=== PATIENT | male | born 1995 | race Caucasian/White ===

== ENCOUNTER 2023-07-28 15:19 | Emergency (ER) | payer BC, SELFPAY ==
[2023-07-28] VITALS (16 sets, daily range): BP systolic 83–140; BP diastolic 45–112; PULSE 61–113; RESP 13–20; TEMP 37.1; O2SAT 96–100
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
--- NOTE | 2023-07-28 15:30 | DI.CT_ITS ---
Exam(s) CT HEAD CERVICAL SPINE WO EXAM: CT HEAD CERVICAL SPINE WO CLINICAL HISTORY: trauma. TECHNIQUE: Imaging Protocol: Axial computed tomography images with coronal and sagittal reformatted images were created and reviewed COMPARISON: No exams were available for comparison FINDINGS: CT Head: Ventricles and Extra axial spaces: Normal in size and morphology for the patient's age. Hemorrhage: None. Cerebral parenchyma: Normal. Midline shift: None. Brainstem/Cerebellum: Normal. Calvarium: Normal. Visualized Paranasal sinuses/Mastoids: Clear. Soft Tissues: Unremarkable. CT Cervical Spine: Bones: No acute fracture or subluxation. There is an acute nondisplaced fracture of the posterior asp ect of the right 3rd rib. Soft Tissues: Unremarkable. Lung Apices: There does appear to be a tiny right apical pneumothorax. IMPRESSION: 1. No acute intracranial process. 2. No acute fracture or subluxation in the cervical spine. 3. There is an acute nondisplaced fracture involving the posterior aspect of the right 3rd rib. Ther e may be a tiny right apical pneumothorax. 4. Findings were discussed with Dr. Rincon at 5:12 a.m. on 07/29/2023. RADIATION DOSE DELIVERED: 1,380.73mGy.cm Total DLP DATA REPOSITORY: All CT scans at this facility are submitted to the National Radiology Data Registry (NRDR) Dose Index Registry (DIR) with the [employer] ([employer]). RADIATION OPTIMIZATION: All CT scans at this facility use at least one of these dose optimization te chniques: automated exposure control; mA and/or kV adjustment per patient size (includes targeted exa ms where dose is matched to clinical indication); or iterative reconstruction.
--- NOTE | 2023-07-28 15:30 | DI.RAD_ITS ---
Exam(s) XR CLAVICLE RT EXAM: XR CLAVICLE RT CLINICAL HISTORY: trauma TECHNIQUE: 2D digital imaging was performed of the right clavicle. Two images were obtained. AP and axial views were obtained. COMPARISON: No exams were available for comparison FINDINGS: BONES: There is an acute comminuted fracture of the midshaft of the right clavicle. There is displac ement and overriding of the fracture fragments. No bony destructive lesion is seen. JOINTS: No dislocation present. SOFT TISSUE: Normal IMPRESSION: Comminuted mid right clavicular fracture. DATA REPOSITORY: RADIATION DOSE DELIVERED:
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
[2023-07-28 15:56] LABS: HCT 43.3 % (40.0-50.0); HGB 15.8 g/dL (13.5-17.5); MCH 30.7 pg (27.0-33.0); MCHC 36.5 % (32.0-36.0); MCV 84 fL (80-95); Platelet Count 204 10^3/uL (130-400); RBC 5.14 10^6/uL (4.36-5.78); RDW 11.5 % (11.8-14.1); RDW-SD 35.2 fL; WBC 7.92 10^3/uL (4.4-10.8)
[2023-07-28] MEDS: Normal Saline 1,000 ML 1000 ML IV ×2 (16:01→17:49)
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
[2023-07-28 16:08] LABS: Albumin 4.5 g/dL (3.4-5.0); Alkaline Phosphatase 62 U/L (46-116); Anion Gap 11.8 mmol/L (3-11); BUN 16 mg/dL (7-18); Bilirubin, Total 0.5 mg/dL (0.2-1.0); CO2 23.2 mmol/L (21.0-32.0); CREATININE 1.1 mg/dL (0.70-1.30); Calcium 9.2 mg/dL (8.5-10.1); Chloride 103 mmol/L (98-107); Estimated GFR 95.54 (mL/min/1.73m2); Glucose 84 mg/dL (74-106); Lipase 31 U/L (16-77); Potassium 3.4 mmol/L (3.5-5.1); Sodium 138 mmol/L (136-145)
--- NOTE | 2023-07-28 16:08 | DI.VRAD_ITS ---
PROCEDURE INFORMATION: Exam: XR Right Clavicle, Complete Exam date and time: 07/28/2023 3:53 PM Age: 27 years old Clinical indication: Other: Trauma TECHNIQUE: Imaging protocol: Radiologic exam of the right clavicle. Complete exam. Views: Any number of views. COMPARISON: CT HEAD CERVICAL SPINE WO 07/28/2023 3:38 PM FINDINGS: Bones/joints: Bony mineralization is within normal limits. There is comminuted fracture of the right clavicle. Fracture is noted the junction of the proximal 1/3 with distal 2/3. There is over riding of the distal fracture fragment relative to the proximal. There are separate fracture fragments located inferiorly. The visualized right upper ribs appear intact. The visualized scapula proximal right humerus appear intact. Soft tissues: Soft tissue swelling supraclavicular region. IMPRESSION: Comminuted fracture right clavicle. Dictated and Authenticated by: Ana Diop MD. Ordering:MARY ANN Lake MD
--- NOTE | 2023-07-28 16:30 | DI.VRAD_ITS ---
PROCEDURE INFORMATION: Exam: CT Head Without Contrast Exam date and time: 07/28/2023 3:38 PM Age: 27 years old Clinical indication: Other: Trauma TECHNIQUE: Imaging protocol: Computed tomography of the head without contrast. Radiation optimization: All CT scans at this facility use at least one of these dose optimization techniques: automated exposure control; mA and/or kV adjustment per patient size (includes targeted exams where dose is matched to clinical indication); or iterative reconstruction. COMPARISON: No relevant prior studies available. FINDINGS: Brain : No hemorrhage. Unremarkable white matter. No mass effect. Mild volume loss Cerebral ventricles: No ventriculomegaly. Paranasal sinuses: Visualized sinuses are unremarkable. No fluid levels. Mastoid air cells: Visualized mastoid air cells are well aerated. Bones/joints: Unremarkable. No acute fracture. Soft tissues: Unremarkable. IMPRESSION: No acute intracranial abnormality. PROCEDURE INFORMATION: Exam: CT Cervical Spine Without Contrast Exam date and time: 07/28/2023 3:38 PM Age: 27 years old Clinical indication: Other: Trauma TECHNIQUE: Imaging protocol: Computed tomography of the cervical spine without contrast. Radiation optimization: All CT scans at this facility use at least one of these dose optimization techniques: automated exposure control; mA and/or kV adjustment per patient size (includes targeted exams where dose is matched to clinical indication); or iterative reconstruction. COMPARISON: CR XR PORTABLE CHEST AP 07/28/2023 3:25 PM FINDINGS: Bones/joints: No acute fracture. Normal alignment. No significant disc bulge or herniation. No severe spinal canal stenosis. No significant neural foraminal narrowing. Lungs: Lung apices are normal. Soft tissues: Unremarkable. IMPRESSION: No acute findings. Dictated and Authenticated by: Amarjit Salazar MD. Ordering:MARY ANN Lake MD
[2023-07-28] MEDS: HYDROmorphone 2 MG/ML SYR 1 MG IVP (16:43)
[2023-07-28] MEDS: ACETAMINOPHEN 1,000 MG/100 ML BTL 400 MG IVPB (16:44)
[2023-07-28 17:07] LABS: AST 96 U/L (15-37)
[2023-07-28 17:08] LABS: ALT 49 U/L (16-63)
[2023-07-28] MEDS: Ondansetron O.D.T. 4 MG TABEF 16 MG PO (18:30)
--- NOTE | 2023-07-29 05:58 | ED.FU.B_ITS ---
Date of service: 07/29/23 Time of Service: 05:58 Follow Up Plan: I received a call from Dr. Jones from radiology as he had over read the patient's CT cervical spine and noted a tiny right apical pneumothorax with an ipsilateral acute nondisplaced fracture involving the posterior aspect of the right third rib. I was able to call the patient at his cell phone. He answered. He reported that he had gotten some sleep last night and was still having pain. I advised him of his rib fracture. He was not feeling short of breath. I did advise that he go to the nearest emergency department to have a chest x-ray performed and a repeat set of vitals. I explained the natural history of small pneumothoraces and that they could either resolve spontaneously or worsen. I explained that the recommendation would be for a repeat x-ray 6 hours after his initial radiograph. Given that his imaging was performed yest erd evening I advised him to go to the nearest emergency care center near his home in [facility] immediately. He understood and was planning on seeking emergent care. Given that he was not having shortness of breath I was not adamant about him taking an ambulance.
== END 2023-07-28 18:50 | disposition home or self-care (01) ==
PROVIDERS: Emergency Provider Emergency Medicine
DX: S42.021A Displaced fracture of shaft of right clavicle, initial encounter for closed fracture (principal); S22.31XA Fracture of one rib, right side, initial encounter for closed fracture; J93.83 Other pneumothorax; F17.210 Nicotine dependence, cigarettes, uncomplicated; F17.290 Nicotine dependence, other tobacco product, uncomplicated; V19.88XA Pedal cyclist (driver) (passenger) injured in other specified transport accidents, initial encounter; Y92.482 Bike path as the place of occurrence of the external cause; Y93.55 Activity, bike riding; Y99.9 Unspecified external cause status; Z23 Encounter for immunization
CPT/HCPCS: 36415; 80053; 83690; 85027; 90472; 96361; 96365; 96375; 99284; 70450; 71045; 72125; 73000; J0131; J1170